=== PATIENT | female | born 1975 | race Caucasian/White ===

== ENCOUNTER → 2023-06-07 08:26 | Outpatient (REF) | payer BC, SELFPAY ==
[2023-06-07 10:15] LABS: Erythrocyte Sed Rate 10 mm/hour (0-20)
[2023-06-08 14:27] LABS: Rheumatoid Agglutinin Less Than 10 IU (<10 IU)
[2023-06-09 07:00] LABS: CCP Antibody IgG/IgA 4 Units (0-19)
[2023-06-09 07:13] LABS: ANA, IgG Reflex to HEp-2 None Detected (None Detected)
== END ==
LOC: REG 08:26
PROVIDERS: ATTENDING PHYSICIAN Physician Assistant Surgical; FAMILY PHYSICIAN Family Medicine
DX: G89.29 Other chronic pain (principal)
CPT/HCPCS: 36415; 85652; 86038; 86140; 86200; 86430

== ENCOUNTER → 2023-09-19 06:52 | Outpatient (REF) | payer OTHER, BC, SELFPAY | LOC: MRI 06:52 | PROVIDERS: ATTENDING PHYSICIAN Physician Assistant Medical; FAMILY PHYSICIAN Family Medicine | DX: M25.561 Pain in right knee (principal) | CPT/HCPCS: 73721 ==

== ENCOUNTER 2024-04-08 15:06 | Outpatient (RCR) | payer OTHER, BC, SELFPAY | END 2024-04-08 23:59 | disposition home or self-care (01) | LOC: RPT 15:06 | PROVIDERS: ATTENDING PHYSICIAN Orthopaedic Surgery; FAMILY PHYSICIAN Family Medicine | DX: Z47.1 Aftercare following joint replacement surgery (principal); Z73.6 Limitation of activities due to disability; R26.89 Other abnormalities of gait and mobility; M25.561 Pain in right knee; Z96.651 Presence of right artificial knee joint | CPT/HCPCS: 97010; 97110; 97161; 97530 ==

== ENCOUNTER 2024-05-10 07:10 | Outpatient (RCR) | payer OTHER, BC, SELFPAY | END 2024-05-10 23:59 | disposition home or self-care (01) | LOC: RPT 07:10 | PROVIDERS: ATTENDING PHYSICIAN Orthopaedic Surgery; FAMILY PHYSICIAN Family Medicine | DX: Z47.1 Aftercare following joint replacement surgery (principal); Z73.6 Limitation of activities due to disability; R26.89 Other abnormalities of gait and mobility; M25.561 Pain in right knee; Z96.651 Presence of right artificial knee joint | CPT/HCPCS: 97010; 97110; 97112; 97140; 97530 ==

== ENCOUNTER → 2024-05-10 07:25 | Outpatient (REF) | payer BC, SELFPAY | LOC: WDC 07:25 | PROVIDERS: ATTENDING PHYSICIAN Family Medicine | DX: Z12.31 Encounter for screening mammogram for malignant neoplasm of breast (principal) | CPT/HCPCS: 77063; 77067 ==

== ENCOUNTER 2024-06-05 06:45 | Outpatient (RCR) | payer OTHER, BC, SELFPAY | END 2024-06-05 09:15 | disposition home or self-care (01) | LOC: RPT 06:45 | PROVIDERS: ATTENDING PHYSICIAN Orthopaedic Surgery; FAMILY PHYSICIAN Family Medicine | DX: Z47.1 Aftercare following joint replacement surgery (principal); Z73.6 Limitation of activities due to disability; R26.89 Other abnormalities of gait and mobility; M25.561 Pain in right knee; Z96.651 Presence of right artificial knee joint | CPT/HCPCS: 97010; 97110; 97112; 97116; 97530 ==